=== PATIENT | female | born 1950 | race Caucasian/White ===

== ENCOUNTER 2022-02-24 11:08 | Outpatient (RCR) | payer BC, SELFPAY | END 2022-05-20 14:59 | disposition home or self-care (01) | PROVIDERS: PCP Family Medicine; Visit Provider Orthopaedic Surgery | DX: M17.11 Unilateral primary osteoarthritis, right knee (principal); R26.9 Unspecified abnormalities of gait and mobility; M25.562 Pain in left knee; M25.561 Pain in right knee; Z51.89 Encounter for other specified aftercare | CPT/HCPCS: 97110 ==

== ENCOUNTER 2022-06-02 07:07 | Outpatient (CLI) | payer BC, SELFPAY ==
[2022-06-02 11:55] LABS: Albumin* 4.1 g/dL (3.3-5.0)
[2022-06-02 11:56] LABS: Chloride* 102 mmol/L (96-114); Potassium* 3.9 mmol/L (3.6-5.1); Sodium* 140 mmol/L (135-149)
[2022-06-02 11:58] LABS: Aspartate Amino Transferase* 22 U/L (12-35); Bilirubin Total* 0.3 mg/dL (0.1-1.5); Carbon Dioxide* 33 mmol/L (20-32); Cholesterol* 237 mg/dL (90-199); Estimated Glomerular Filt Rate 61 ml/min; Total Protein* 6.6 g/dL (6.0-8.3)
[2022-06-02 11:59] LABS: Alanine Aminotransferase* 22 U/L (4-35); Alkaline Phosphatase* 85 U/L (40-150); Blood Urea Nitrogen* 21 mg/dL (7-30); Calcium* 9.7 mg/dL (8.4-10.6); Glucose* 98 mg/dL (60-115); HDL Cholesterol* 52 mg/dL (>=50); LDL Cholesterol Calculated 162 mg/dL (<100); Triglycerides* 117 mg/dL (40-149)
[2022-06-02 12:28] LABS: TSH With Reflex to FT4* 0.743 uIU/mL (0.270-4.200)
== END 2022-06-02 07:08 | disposition home or self-care (01) ==
PROVIDERS: PCP Family Medicine; Visit Provider Family Medicine
DX: E78.5 Hyperlipidemia, unspecified (principal); E03.9 Hypothyroidism, unspecified
CPT/HCPCS: 80053; 80061; 84443

== ENCOUNTER 2023-06-11 13:10 | Outpatient (CLI) | payer BC, SELFPAY | END 2023-06-11 13:11 | disposition home or self-care (01) | LOC: NFLDREF 06-15 08:26 | PROVIDERS: PCP Family Medicine; Referring Provider Family Medicine; Visit Provider Family Medicine | DX: Z00.00 Encounter for general adult medical examination without abnormal findings (principal); E78.5 Hyperlipidemia, unspecified; E03.9 Hypothyroidism, unspecified; I10 Essential (primary) hypertension | CPT/HCPCS: 80053; 80061; 84443 ==

== ENCOUNTER 2023-06-26 08:01 | Outpatient (CLI) | payer BC, SELFPAY | END 2023-06-26 08:02 | disposition home or self-care (01) | LOC: AMB 06-29 10:40 | PROVIDERS: PCP Family Medicine; Visit Provider Family Medicine | DX: S09.90XA Unspecified injury of head, initial encounter (principal); W18.30XA Fall on same level, unspecified, initial encounter; Y92.129 Unspecified place in nursing home as the place of occurrence of the external cause | CPT/HCPCS: A0425; A0429 ==

== ENCOUNTER 2023-06-26 08:16 | Emergency (ER) | payer BC, SELFPAY ==
--- NOTE | 2023-06-26 | CRLHL7_ITS ---
For Patients: As a result of the Century Cures Act, medical imaging exams and procedure reports are released immediately into your electronic medical record. You may view this report before your referring provider. If you have questions, please contact your health care provider. INDICATION: Fall, head injury TECHNIQUE: CT head without contrast. COMPARISON: Head CT 07/21/2020 FINDINGS: CSF spaces: Within normal limits for age. Brain parenchyma: The sweeney-white differentiation is normal. No sign of mass, hemorrhage, or midline shift. Moderate low density in the deep white matter. Mild cerebral atrophy. Skull base and calvarium: The visualized paranasal sinuses and mastoid air cells demonstrate no acute or significant findings. The visualized orbits are grossly unremarkable. No skull fractures. Posterior scalp hematoma. IMPRESSION: 1. Posterior scalp hematoma without calvarial fracture or intracranial bleed. 2. Cerebral atrophy with nonspecific white matter disease, likely microangiopathy. Please note that all CT scans at this facility use dose modulation, iterative reconstruction, and/or weight-based dosing when appropriate to reduce radiation dose to as low as reasonably achievable. Dictated by Alberto Dye MD @ 06/26/2023 8:52:35 AM (Electronically Signed)
--- NOTE | 2023-06-26 | CRLHL7_ITS ---
For Patients: As a result of the Century Cures Act, medical imaging exams and procedure reports are released immediately into your electronic medical record. You may view this report before your referring provider. If you have questions, please contact your health care provider. INDICATION: Injury COMPARISON: July 21, 2020 TECHNIQUE: CT examination of the cervical spine is performed without contrast using spiral technique. Thin axial, sagittal and coronal reconstructions were made. Please note that all CT scans at this facility use dose modulation, iterative reconstruction, and/or weight-based dosing when appropriate to reduce radiation dose to as low as reasonably achievable. FINDINGS: : The osseous structures are demineralized. There is both straightening and leftward tilt which is probably due to muscle spasm, positioning and/or due to an immobilization device. There is no visible acute fracture, dislocation or destructive process. Incidental densely ossified stylohyoid ligaments. IMPRESSION: No acute fracture, dislocation or destructive process. Straightening and tilt probably due to positioning. Ossified stylohyoid ligaments incidentally noted Please note that all CT scans at this facility use dose modulation, iterative reconstruction, and/or weight-based dosing when appropriate to reduce radiation dose to as low as reasonably achievable. Dictated by Zurdo Mejía MD @ 06/26/2023 9:06:56 AM (Electronically Signed)
[2023-06-26 08:24] VITALS: BP 154/79; PULSE 82; RESP 18; TEMP 36.1; O2SAT 96
--- NOTE | 2023-06-26 08:30 | ED_ITS ---
HPI - Head Injury General Date Seen: 06/26/23 Chief complaint: Head Injury/Pain Stated complaint: head injury Time Seen by Provider: 06/26/23 08:20 Source: patient, EMS and RN notes reviewed Mode of arrival: EMS Limitations: altered mental status (Patient has dementia.) History of Present Illness HPI Narrative: Patient was seen on arrival with EMS, met in the back all way. Patient was hem odynamically stable, was keeping eyes closed but would interact when touched, almost startle. She has significant dementia. Nursing staff had called from her care facility prior to ambulance getting there, gave us a good report, was standing by the nurse when she was taking the report over the phone. Patient was found down in her room, had 80 noted hematoma on the back of her head, they did not believe there was loss of consciousness but fall was not witnessed. Patient is known to have significant dementia. They are sending her here for evaluation of the head injury. She is not on any blood thinners. She reportedly only takes Tylenol and Seroquel. EMS found no other injuries but admits she can be difficult to assess. She is known to have a history of falls per EMS. MD Complaint: head injury and fall Mechanism of Injury: fall Place: home Location of injury: occipital Related Data Home Medications Medication Instructions Recorded Confirmed quetiapine 25 mg tablet 25 mg PO QPM 06/26/23 06/26/23 quetiapine 25 mg tablet (Seroquel) 25 mg PO BID 06/26/23 06/26/23 Previous Rx's Medication Instructions Recorded quetiapine 50 mg tablet 50 mg PO QHS #30 tabs 06/18/23 Allergies Allergy/AdvReac Type Severity Reaction Status Date / Time oats Allergy Severe throat Verified 06/15/23 13:24 closure Wheat bran Allergy Severe throat Uncoded 06/15/23 13:24 closure Review of Systems Status of ROS: Reports: unobtainable due to medical condition (Significant dementia) PFSH PFS Surgical History Status post total knee replacement ?Z96.659 - Presence of unspecified artificial knee joint (ICD-10) History of breast biopsy ?Z98.890 - Other specified postprocedural states (ICD-10) History of appendectomy ?Z90.49 - Acquired absence of other specified parts of digestive tract (ICD- 10) Social History What is your current living situation?: I presently have a place to live Problems where you live: declined to answer In the past 12 months, utilities in danger of being shut off: no In past 12 months, lack of transportation kept you from medical appts, meetings, work, or getting things needed for daily living: no In the past 12 mos, have been you worried that your food would run out before you had money to buy more?: never true In the past 12 mos, the food you bought just didn't last and you didn't have money to buy more?: never true Smoking Status: Never smoker How often does anyone, including family, friends and others, physically hurt you : never How often does anyone, including family, friends and others, insult or talk down to you: never How often does anyone, including family, friends and others, threaten you with harm: never How often does anyone, including family, friends and others, scream or curse at you: never Little interest or pleasure in doing things: more than half the days Feeling down, depressed, or hopeless: more than half the days Exam Const: Vital Signs, click to edit/add: Vital Signs - 24 hr 06/26/23 08:24 Temperature 97.0 F L Pulse Rate [Right Pulse Oximeter] 82 Respiratory Rate 18 Blood Pressure [Ri ght Upper Arm] 154/79 H Pulse Oximetry 96 Oxygen Delivery Me thod Room Air Patient initially has eyes closed, is seen in the back hallway, vitals are stable, breathing easily on room air, is arousable. Is reported to be at her baseline per staff. Plan to go directly to CT given her stability. Patient is seen after her CTs are done, she is lying in the bed, resting, is muttering speech which is nonsensical. I do palpate a raised hematoma area on her right occipital scalp, she goes to grab me but is redirectable. She will open her eyes, has conjugate gaze, sclera clear. Appears to have symmetrical facial function, atraumatic facial exam. No drainage from nares or ears. Does not seem to have any midline tenderness of her neck but it exam is difficult. CV regular rate and rhythm, no murmur, normal S1 and S2. Lungs are clear, does not seem to have any tenderness on palpation of her chest wall. Abdomen is soft, nondistended, feel no masses, does not seem to elicit any pain. 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 Observe her moving both of her upper and lower extremities, does not seem to have any noted deficits. Documenting provider has reviewed patient's vital signs: yes Course Course ED Course: Patient has already had her head CT, did opt to do a cervical spine CT given the limitations of her exam due to dementia. We will observe her here while we await this imaging to be read. At this time, see no other areas of trauma or deficits. Will continue to observe and if need be alter course with further testing or imaging if we find anything specific while here. However, at this time, see nothing further to do. Reevaluation(s) Time of Reevaluation #1: 09:29 Reevaluation #1: Reviewed with daughter Annette normal imaging, no traumatic change. Plan will be to go back to [facility]. She notes that they are working on fall management. Vital Signs Vital signs: Initial Vital Signs Temperature 97.0 F L 06/26/23 08:24 Temperature Source Temporal Artery Scan 06/26/23 08:24 Pulse Rate 82 06/26/23 08:24 Respiratory Rate 18 06/26/23 08:24 Blood Pressure 154/79 H 06/26/23 08:24 Blood Pressure Mean 104 06/26/23 08:24 Blood Pressure Position Sitting 06/26/23 08:24 Pulse Oximetry 96 06/26/23 08:24 Oxygen Delivery Method Room Air 06/26/23 08:24 Vital Signs Temperature 97.0 F L 06/26/23 08:24 Pulse Rate 82 06/26/23 08:24 Respiratory Rate 18 06/26/23 08:24 Blood Pressure 154/79 H 06/26/23 08:24 Pulse Oximetry 96 06/26/23 08:24 Oxygen Delivery Method Room Air 06/26/23 08:24 Temperature 97.0 F L 06/26/23 08:24 Pulse Rate 82 06/26/23 08:24 Respiratory Rate 18 06/26/23 08:24 Blood Pressure 154/79 H 06/26/23 08:24 Pulse Oximetry 96 06/26/23 08:24 Oxygen Delivery Method Room Air 06/26/23 08:24 MDM - Head Injury Imaging Data CT scan - head: Attestation: I have reviewed the pertinent imaging results. Radiologist's impression: Patient: WILMAN CARMICHAEL Facility:?[facility] Patient ID:?[id number] Site Patient ID:?[id number]. Site :?[id number] Study:?CT Head W/O-06/26/2023 8:26:07 AM Ordering Physician:?Kristopher Valdez Final Report: INDICATION: Fall, head injury TECHNIQUE: CT head without contrast. COMPARISON: Head CT 07/21/2020 FINDINGS: CSF spaces: Within normal limits for age. Brain parenchyma: The sweeney-white differentiation is normal. No sign of mass, hemorrhage, or midline shift. Moderate low density in the deep white matter. Mild cerebral atrophy. Skull base and calvarium: The visualized paranasal sinuses and mastoid air cells demonstrate no acute or significant findings. The visualized orbits are grossly unremarkable. No skull fractures. Posterior scalp hematoma. IMPRESSION: 1. Posterior scalp hematoma without calvarial fracture or intracranial bleed. 2. Cerebral atrophy with nonspecific white matter disease, likely microangiopathy. Please note that all CT scans at this facility use dose modulation, iterative reconstruction, and/or weight-based dosing when appropriate to reduce radiation dose to as low as reasonably achievable. Dictated by Alberto Dye MD @ 06/26/2023 8:52:35 AM (Electronic Signature) CT cervical spine: Attestation: I have reviewed the pertinent imaging results. Radiologist's impression: Patient: WILMAN CARMICHAEL Facility:?[facility] Patient ID:?[id number] Site Patient ID:?[id number]. Site :?[id number] Study:?CT Spine Cervical W/O-06/26/2023 8:26:30 AM Ordering Physician:Santo Valdez Final Report: INDICATION: Injury COMPARISON: July 21, 2020 TECHNIQUE: CT examination of the cervical spine is performed without contrast using spiral technique. Thin axial, sagittal and coronal reconstructions were made. Please note that all CT scans at this facility use dose modulation, iterative reconstruction, and/or weight-based dosing when appropriate to reduce radiation dose to as low as reasonably achievable. FINDINGS: : The osseous structures are demineralized. There is both straightening and leftward tilt which is probably due to muscle spasm, positioning and/or due to an immobilization device. There is no visible acute fracture, dislocation or destructive process. Incidental densely ossified stylohyoid ligaments. IMPRESSION: No acute fracture, dislocation or destructive process. Straightening and tilt probably due to positioning. Ossified stylohyoid ligaments incidentally noted Please note that all CT scans at this facility use dose modulation, iterative reconstruction, and/or weight-based dosing when appropriate to reduce radiation dose to as low as reasonably achievable. Dictated by Zurdo Mejía MD @ 06/26/2023 9:06:56 AM (Electronic Signature) Critical Care Time Critical Care Time Critical Care Time: No Discharge Plan Discharge Clinical Impression: Hematoma of occipital region of scalp, Dementia, Fall Patient Disposition: Home w/ Parent or Adult Condition: Stable Instructions: Fall Prevention for Older Adults (ED), Scalp Contusion in Adults (ED) Additional Instructions: Head CT and cervical spine CT were done in evaluation here. There are no acute traumatic change outside of the scalp hematoma identified. Can continue with Tylenol per her medication reconciliation for pain management. Can try ice to the back of the scalp if she will tolerate this, does not need to happen if she is intolerant to it. Activity Level: Activity as Tolerated Prescriptions: No Action quetiapine 50 mg tablet 50 mg PO QHS Qty: 30 12RF quetiapine 25 mg tablet 25 mg PO QPM quetiapine [Seroquel] 25 mg tablet 25 mg PO BID Follow Up/Referrals: Genaro Arroyo MD [Primary Care Provider] - Stand Alone Forms: [place]. com. cn Info Instructions
--- NOTE | 2023-06-26 09:11 | ED.NURSE ---
resting in bed. waiting for results
== END 2023-06-26 10:39 | disposition home or self-care (01) ==
PROVIDERS: Emergency Provider Family Medicine; PCP Family Medicine
DX: S00.03XA Contusion of scalp, initial encounter (principal); W18.30XA Fall on same level, unspecified, initial encounter
CPT/HCPCS: 70450; 72125; 99284

== ENCOUNTER 2023-06-26 10:27 | Outpatient (CLI) | payer BC, SELFPAY | END 2023-06-26 10:28 | disposition home or self-care (01) | LOC: AMB 06-29 10:44 | PROVIDERS: PCP Family Medicine; Visit Provider Family Medicine | DX: F03.90 Unspecified dementia, unspecified severity, without behavioral disturbance, psychotic disturbance, mood disturbance, and anxiety (principal) | CPT/HCPCS: A0425; A0428 ==